=== PATIENT | female | born 1995 | race Caucasian/White ===

== ENCOUNTER 2018-03-17 01:53 | Emergency (ER) | payer BC ==
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
[2018-03-17 02:32] VITALS: BP 97/69
== END 2018-03-17 02:35 | disposition home or self-care (01) ==
LOC: ED 01:53
DX: F10.129 Alcohol abuse with intoxication, unspecified (principal)
CPT/HCPCS: 99284